=== PATIENT | male | born 1960 | race Two or more races ===

== ENCOUNTER 2023-09-22 08:25 | Emergency (ER) | payer BC ==
[~2023-09-22] VITALS: Ht 170.2 cm; Wt 95.0 kg
[2023-09-22 08:39] VITALS: O2SAT 99
[2023-09-22] MEDS ORDERED: ACETAMINOPHEN 325MG TABLET PO ONE (08:45)
[2023-09-22] MEDS ORDERED: VANCOMYCIN 1G PREMIX 200 ML IV SCH ×2 (08:45→18:00)
[2023-09-22] MEDS ORDERED: CEFTRIAXONE 2GM/50ML (ADDEASE) 50 ML IV ONE (08:45)
[2023-09-22] MEDS ORDERED: SODIUM CHLORIDE 0.9% 1000ML BAG (SEPSIS BOLUS) IV ONE (08:45)
[2023-09-22 09:14] LABS: BASOPHILS % 0.1 % (0.0-2.0); EOSINOPHILS % 0.5 % (0.0-5.0); HEMATOCRIT. 41.2 % (42.0-52.0); HEMOGLOBIN. 13.9 g/dL (14.0-18.0); LYMPHOCYTES % 45.2 % (20.0-50.0); MEAN CORPUSCULAR HEMOGLOBIN 29.9 pg (28.0-32.0); MEAN CORPUSCULAR HGB CONC 33.8 g/dL (31.0-37.0); MEAN CORPUSCULAR VOLUME 88.3 fL (80.0-94.0); MEAN PLATELET VOLUME 8.4 fl (7.4-10.4); MONOCYTES % 4.9 % (2.0-8.0); NEUTROPHILS % 49.3 % (40.0-76.0); PLATELET 362 x1000/uL (130-400); RED BLOOD CELL COUNT 4.66 mill/uL (4.7-6.1); RED CELL DISTRIBUTION WIDTH 14.1 % (11.6-14.6); WHITE BLOOD COUNT 9.2 x1000/uL (4.5-11.0)
[2023-09-22] MEDS ORDERED: LORAZEPAM 1MG TABLET PO NR (09:30)
[2023-09-22 09:34] LABS: ALANINE AMINOTRANSFERASE 25 IU/L (10-49); ALBUMIN 4.5 g/dL (3.2-4.8); ASPARTATE AMINOTRANSFERASE 51 IU/L (<34); BILIRUBIN TOTAL 0.7 mg/dL (0.1-1.0); CALCIUM 9.5 mg/dL (8.7-10.4); CARBON DIOXIDE 26 mEq/L (21-32); CHLORIDE 97 mEq/L (98-107); CREATININE 1.3 mg/dL (0.6-1.3); GLUCOSE 236 mg/dL (70-105); POTASSIUM 3.3 mEq/L (3.5-5.1); PROTEIN TOTAL 8.1 g/dL (6.0-8.3); SODIUM 135 mEq/L (136-145); TROPONIN I HIGH SENSITIVITY 6 ng/L (3.0-53); UREA NITROGEN BLOOD 12 mg/dL (9-23)
[2023-09-22 09:50] LABS: ETHANOL BLOOD < 10 mg/dL (<10)
[2023-09-22] MEDS ORDERED: CEFTRIAXONE 2 G in DEXTROSE 5% WATER 50 ML IV NR (10:00)
[2023-09-22] MEDS ORDERED: LORAZEPAM 0.5MG TABLET PO NR (10:08)
[2023-09-22 10:23] LABS: CLARITY URINE CLEAR (CLEAR); COLOR URINE YELLOW (YELLOW); GLUCOSE URINE 2+ (NEGATIVE); KETONES URINE TRACE (NEGATIVE); LEUKOCYTE ESTERASE URINE NEGATIVE (NEGATIVE); NITRITE URINE NEGATIVE (NEGATIVE); OCCULT BLOOD URINE NEGATIVE (NEGATIVE); PROTEIN URINE TRACE (NEGATIVE); SPECIFIC GRAVITY URINE 1.056 (1.005-1.030); UROBILINOGEN URINE 0.2 E.U./dL (0.2-1.0)
[2023-09-22 10:27] LABS: BACTERIA URINE NONE SEEN; RBC URINE 0-2 /hpf (0-2); SQUAMOUS EPITHELIAL CELL URINE NONE SEEN /lpf (RARE/1+); WBC URINE NONE SEEN /hpf (0-2); YEAST URINE NONE SEEN
[2023-09-22 11:38] LABS: *AMPHETAMINES SCREEN URINE NEGATIVE (NEGATIVE); *BARBITURATES SCREEN URINE NEGATIVE (NEGATIVE); *BENZODIAZEPINES SCREEN URINE NEGATIVE (NEGATIVE); *COCAINE SCREEN URINE NEGATIVE (NEGATIVE); CANNABINOID URINE SCREEN NEGATIVE (NEGATIVE); ECSTASY MDMA SCREEN URINE NEGATIVE (NEGATIVE); METHADONE URINE SCREEN Neg (NEGATIVE); OPIATES URINE SCREEN NEGATIVE (NEGATIVE); PHENCYCLIDINE URINE SCREEN NEGATIVE (NEGATIVE)
[2023-09-22 12:06] LABS: LACTIC ACID 3.4 mmol/L (0.4-2.0)
[2023-09-22] MEDS ORDERED: DIPHENHYDRAMINE 50MG/ML VIAL IV PRN (12:45)
[2023-09-22] MEDS ORDERED: ACETAMINOPHEN 325MG TABLET PO PRN ×2 (12:45)
[2023-09-22] MEDS ORDERED: DEXTROSE 50% WATER 50ML SYRINGE IV PRN (12:45)
[2023-09-22] MEDS ORDERED: INSULIN GLARGINE 100 UNITS/ML SUBCUT SCH (13:00)
[2023-09-22] MEDS ORDERED: SODIUM CHLORIDE 0.9% 1,000 ML IV ONE (13:00)
[2023-09-22] MEDS ORDERED: THIAMINE HCL 100MG TABLET PO SCH (13:00)
[2023-09-22] MEDS ORDERED: KETOROLAC 15MG/ML VIAL IV PRN (13:00)
[2023-09-22] MEDS: BLOOD SUGAR DIAGNOSTIC STRIP TEST SCH ×2 (13:00→17:00)
[2023-09-22] MEDS: INSULIN LISPRO 100 UNITS/ML SUBCUT SCH ×2 (13:20→18:20)
[2023-09-22] MEDS ORDERED: POTASSIUM CHLORIDE 20MEQ TABLET SR PO NR (13:30)
[2023-09-22] MEDS ORDERED: AMPICILLIN SOD/SULBACTAM NA 1.5 G in SODIUM CHLORIDE 0.9% 50 ML IV SCH (14:00)
[2023-09-22 20:47] LABS: PHOSPHORUS 3.1 mg/dL (2.5-4.9)
[2023-09-22 20:48] VITALS: BP 130/68; PULSE 74; RESP 15; TEMP 98.7
[2023-09-22] MEDS ORDERED: IOHEXOL-350 100 ML BOTTLE ONE (22:49)
[2023-09-23] MEDS ORDERED: LISINOPRIL 5MG TABLET PO SCH (09:00)
[2023-09-23] MEDS ORDERED: CEFTRIAXONE 1,000 MG in DEXTROSE 5% WATER 50 ML IV SCH (10:00)
== END 2023-09-22 22:07 | disposition left against medical advice (07) ==
LOC: ER 08:45 → EDBEDREQTM 13:33 → EDBEDREQ 13:33 → EDBEDREQSVC 13:33 → ER 22:07
DX: G83.9 Paralytic syndrome, unspecified (principal); M54.2 Cervicalgia; E11.21 Type 2 diabetes mellitus with diabetic nephropathy; E11.65 Type 2 diabetes mellitus with hyperglycemia
CPT/HCPCS: 80053; 80305; 81003; 80320; 82962; 83036; 83605; 83735; 84100; 85025; 85610; 87040; 87086; 84484; 36415; 84145; 71045; 70496; 70498; 70450; 93005; 96367; 96368; 96361; 96365; 96366; 96372; 99291; 99292; Q9967; J0295; J0696; J1200; J1815 ×2; J3370; J7060; J7030; Z7610 ×2; G0480